=== PATIENT | male | born 2000 | race Caucasian/White ===

== ENCOUNTER 2023-06-17 18:54 | Emergency (ER) | payer SELFPAY ==
--- OUTSIDE RECORDS SUMMARY | 2023-06-17 18:57 | XMS REPORT | Continuity of Care Document ---
Author Name Unknown Address [address] [place] [address] [facility] thconnect Address [address] [place] [address] Care Team Providers Care Assistant District Attorney Name Role Phone PCP, PATIENT DOES NOT HAVE A Primary Care Physic cynthia Unavailable GODWIN SCHWARTZ Attending Clinician Unavail able Godwin Schwartz MD Attending Clinician [phone] Doctor Unassigned, [place] Attending Clinician U rafael Hugo RN, Tory Snyder Attending Clinician Unavailab Johnie Shaw Attending Clinician Unavailable Johnie Oviedo Attending Clinician [phone] GODWIN SCHWARTZ Admitting Clinician Unavail able Allergies, Adverse Reactions, Alerts Allergy Name Allergy Type Status Severity Reaction(s) Onset Date Inactive Date Treating Clinician Comments Source NO KNOWN ALLERGIE S Drug Class Active [facility] Social History Social Habit Start Date Stop Date Quantity Comments Source Exposure to SARS-CoV-2 (event) 2022-11-24 00:00:00 2022-12-04 07:59:00 Not sure [facility] Sex Assigned At 2000 00:00:00 2000 00:00:00 [facility] Smoking Status Start Date Stop Date Source Tobacco smoking consumption unknown [facility] Medications Ordered Medication Name Filled Medication Name Start Date Stop Date Current Medication? Ordering Clinician Indication Dosage Frequency Signature (SIG) Comments Components Source ondansetron (ZOFRAN-ODT ) disintegrat ing tablet 4 mg 12-04 14:15: 00 12-04 13:31 :00 No 4mg 4 mg, Oral, ONCE, 1 dose, On Alisha 12/04/22 at 0915, Routine [facility] acetaminoph en (TYLENOL EXTRA STRENGTH) 500 mg tablet 12-04 00:00: 00 Yes [id number] 500mg Take 1 tablet by mouth every 6 (six) hours as needed for Pain for up to 20 doses. [facility] ondansetron 4 mg disintegrat ing tablet 12-04 00:00: 00 Yes [id number] 4mg Take 1 tablet by mouth every 8 (eight) hours as needed for Nausea and Vomiting (N/V) for up to 10 doses. [facility] benzocaine- menthoL (CEPACOL INSTAMAX SORE THROAT) 15-20 mg Lozg 12-04 00:00: 00 Yes [id number] 1{lozen ge} Apply 1 Lozenge as directed every 8 (eight) hours as needed for Pain (scale 4-6) for up to 16 doses. [facility] famotidine (PEPCID) 20 mg tablet 12-04 00:00: 00 12-20 04:59 :00 No [id number] 20mg Take 1 tablet by mouth in the morning and 1 tablet in the evening. Do all this for 30 doses. [facility] benzonatate (TESSALON PERLES) capsule 100 mg 09-04 22:15: 00 09-04 21:18 :00 No 100mg 100 mg, Oral, ONCE, 1 dose, On Thu09/04/21 at 1615, KYLIE [facility] ibuprofen (IBU) tablet 600 mg 09-04 22:15: 00 09-04 21:17 :00 No 600mg 600 mg, Oral, ONCE, 1 dose, On Thu09/04/21 at 1615, KYLIE [facility] benzonatate 100 mg capsule 09-04 00:00: 00 Yes [id number] 100mg Take 1 capsule by mouth 3 (three) times daily as needed for Cough. [facility] mg tablet 2021-0 3-02 00:00: 00 Yes [id number] 600mg Take 1 tablet by mouth every 6 (six) hours as needed for Pain (scale 4-6). [facility] benzonatate 100 mg capsule 2-0 3-02 00:00: 00 Yes [id number] 100mg Take 1 capsule by mouth 3 (three) times daily as needed for Cough. [facility] ibuprofen 600 mg tablet 2-0 3-02 00:00: 00 Yes [id number] 600mg Take 1 tablet by mouth every 6 (six) hours as needed for Pain (scale 4-6). [facility] benzonatate 100 mg capsule 2021-0 -02 00:00: 00 Yes [id number] 100mg Take 1 capsule by mouth 3 (three) times daily as needed for Cough. [facility] ibuprofen 600 mg tablet 2-0 3-02 00:00: 00 Yes [id number] 600mg Take 1 tablet by mouth every 6 (six) hours as needed for Pain (scale 4-6). [facility] benzonatate 100 mg capsule 2021-0 3-02 00:00: 00 Yes [id number] 100mg Take 1 capsule by mouth 3 (three) times daily as needed for Cough. [facility] ibuprofen 600 mg tablet 2-0 3-02 00:00: 00 Yes [id number] 600mg Take 1 tablet by mouth every 6 (six) hours as needed for Pain (scale 4-6). [facility] Vital Signs Vital Name Observation Time Observation Value Comments Haydee lentz Systolic blood pressure 2022-12-04 14:52:43 120 mm[Hg] [facility] Diastolic blood pressure 2022-12-04 14:52:43 78 mm[Hg] [facility] Heart rate 2022-12-04 14:52:43 97 /min [facility] Body temperature 2022-12-04 14:52:43 36.67 Nereyda [facility] Respiratory rate 2022-12-04 14:52:43 16 /min [facility] Oxygen saturation in Arterial blood by Pulse oximetry 2022-12-04 14:50:00 98 /min [facility] Body height 2022-12-04 13:00:00 167.6 cm [facility] Body weight 2022-12-04 13:00:00 53.887 kg [facility] BMI 2022-12-04 13:00:00 19.17 kg/m2 [facility] Systolic blood pressure 2021-09-04 21:18:00 129 mm[Hg] [facility] Diastolic blood pressure 2021-09-04 21:18:00 56 mm[Hg] [facility] Heart rate 2021-09-04 21:18:00 95 /min [facility] Respiratory rate 2021-09-04 21:18:00 18 /min [facility] Oxygen saturation in Arterial blood by Pulse oximetry 2021-09-04 21:18:00 99 /min [facility] Body temperature 2021-09-04 19:46:00 37.89 Nereyda [facility] Body weight 2021-09-04 19:46:00 63.504 kg [facility] Procedures Procedure Date / Time Performed Performing Clinician Source ASSIGNMENT OF BENEFITS 2022-12-04 13:46:48 Docto r Unassigned, [place] [facility] RAPID STREP SCREEN FOR GROUP A 2022-12-04 13:33:00 Godwin Schwartz [facility] RAPID INFLUENZA A/B 2022-12-04 13:33:00 Godwin Schwartz [facility] COVID-19 (ID NOW RAPID TESTING) 2022-12-04 13:33:00 Godwin Schwartz [facility] NOTICE OF PRIVACY PRACTICES 2022-12-04 13:01:59 Doctor Unassigned, [place] [facility] CONSENT/REFUSAL FOR DIAGNOSIS AND TREATMENT 2022-12-04 13:01:39 Doctor Unassigned, [place] [facility] STERILIZATION CONSENT FORM 2022-03-31 05:01:00 Doctor Unassigned, [place] [facility] NOTICE OF PRIVACY PRACTICES 2021-09-04 19:35:20 Doctor Unassigned, [place] [facility] CONSENT/REFUSAL FOR DIAGNOSIS AND TREATMENT 2021-09-04 19:33:00 Doctor Unassigned, [place] [facility] Encounters Start Date/Time End Date/Time Encounter Type Admission Type Attending [facility] Care Facility Care Department Encounter ID Source 2022-12-04 08:01:00 2022-12-04 09:53:00 Emergency GODWIN STILES [facility] ERT [id number] [facility] 2022-12-04 08:01:00 2022-12-04 09:53:00 Emergency Godwin Schwartz [facility] [id number] [facility] 2022-03-31 00:00:00 2022-03-31 00:00:00 Orders Only Doctor Unassigned, [place] [facility] [id number] [facility] 2021-09-05 00:00:00 2021-09-05 00:00:00 Letter (Out) Tory Hugo [facility] [id number] [facility] 2021-09-04 13:47:00 2021-09-04 15:40:00 Emergency X Johnie BOWMAN [facility] ERT [id number] [facility] 2021-09-04 13:47:00 2021-09-04 15:40:00 Emergency Johnie Bowman [facility] [id number] [facility]
--- NOTE | 2023-06-17 19:12 | EDPHYS ---
Physician Documentation [facility] Name: Aki Dewey Age: 23 yrs Sex: Male : 2000 Arrival Date: 06/17/2023 Time: 18:54 Bed Waiting Private MD: STEWART Physician Mat Ding HPI: 06/17 19:11 This 23 yrs old Male presents to ER via Ambulatory with complaints of Vomiting. kb 19:11 Patient is a 23-year-old male with no medical history who presents for a work note. kb States he had vomiting and diarrhea for the last 2 days so he missed work and was told he needed a doctor's note to return. States he has had no symptoms today. Has been tolerating p.o. intake.. Historical: - Allergies: 19:11 No Known Allergies; cm10 - Home Meds: 19:11 None [Active]; cm10 - PMHx: 19:11 None; cm10 - PSHx: 19:11 None; cm10 - Immunization history:: Adult Immunizations unknown. - Social history:: Smoking status: Reported history of juuling and/or vaping. ROS: 19:12 Constitutional: Negative for fever, chills, and weight loss, kb 19:12 All other systems are negative, Exam: 19:12 Constitutional: This is a well developed, well nourished patient who is awake, alert, kb and in no acute distress. Head/Face: Normocephalic, atraumatic. ENT: Moist Mucous membranes Respiratory: Respirations even and unlabored. No increased work of breathing. Talking in full sentences Abdomen/GI: Soft, non-tender. No distention Skin: Warm, dry with normal turgor. Normal color. MS/ Extremity: Pulses equal, no cyanosis. Neurovascular intact. Full, normal range of motion. Neuro: Awake and alert, GCS 15, oriented to person, place, time, and situation. Moves all extremities. Normal gait. Vital Signs: 19:10 BP 127 / 69; Pulse 89; Resp 18; Temp 97; Pulse Ox 98% ; cm10 MDM: 19:08 Patient medically screened. kb 19:12 Differential diagnosis: viral gastroenteritis, Electrolyte abnormality, dehydration. kb Data reviewed: vital signs, nurses notes. Test considered but Not performed: Labs: CBC CMP considered but symptoms have resolved, patient is tolerating p.o. intake, nontoxic in appearance, afebrile and vital signs stable.. Counseling: I had a detailed discussion with the patient and/or guardian regarding the historical points, exam findings, and any diagnostic results supporting the discharge/admit diagnosis, the need for outpatient follow up, a family practitioner, to return to the emergency department if symptoms worsen or persist or if there are any questions or concerns that arise at home. Administered Medications: No medications were administered Disposition Summary: 06/17/23 19:11 Discharge Ordered Notes: Location: Home kb Condition: Stable kb Diagnosis - Encounter for issue of other medical certificate kb Followup: kb - With: Emergency Department - When: As needed - Reason: Worsening of condition Followup: kb - With: Private Physician - When: 2 - 3 days - Reason: Recheck today's complaints, Continuance of care, Re-evaluation by your physician Discharge Instructions: - Discharge Summary Sheet kb Forms: - Work release form kb - Medication Reconciliation Form kb - Thank You Letter kb - Antibiotic Education kb - Prescription Opioid Use kb - Patient Portal Instructions kb - Leadership Thank You Letter kb Signatures: Mecca Bernal, ANTON-C ANTON-Taina Busch, RN RN cm10
--- NOTE | 2023-06-17 19:12 | ER ---
Nurse's Notes [facility] Name: Aki Dewey Age: 23 yrs Sex: Male : 2000 Arrival Date: 06/17/2023 Time: 18:54 Bed Waiting Private MD: Diagnosis: Encounter for issue of other medical certificate Presentation: 06/17 19:10 Chief complaint: Patient states: Here for a work note due to being ill Thursday and cm10 Thursday. No complaints at this time. Coronavirus screen: Vaccine status: Patient reports being unvaccinated. Client denies travel out of the [place] in the last 14 days. Ebola Screen: Patient denies travel to an Ebola-affected area in the 21 days before illness onset. No symptoms or risks identified at this time. Initial Sepsis Screen: Does the patient meet any 2 criteria? No. Patient's initial sepsis screen is negative. Does the patient have a suspected source of infection? No. Patient's initial sepsis screen is negative. Risk Assessment: Do you want to hurt yourself or someone else? Patient reports no desire to harm self or others. Onset of symptoms was June 17, 2023. 19:10 Method Of Arrival: Ambulatory cm10 19:10 Acuity: CESAR 5 cm10 Triage Assessment: 19:11 General: Appears in no apparent distress. comfortable, Behavior is calm, cooperative. cm10 Pain: Denies pain. Neuro: No deficits noted. Level of Consciousness is awake, alert, obeys commands, Oriented to person, place, time, situation. Respiratory: No deficits noted. Airway is patent Respiratory effort is even, unlabored, Respiratory pattern is regular, symmetrical. GI: Reports nausea. Derm: No deficits noted. Skin is intact, Skin is pink, warm \T\ dry. Musculoskeletal: Range of motion: intact in all extremities. Historical: - Allergies: 19:11 No Known Allergies; cm10 - Home Meds: 19:11 None [Active]; cm10 - PMHx: 19:11 None; cm10 - PSHx: 19:11 None; cm10 - Immunization history:: Adult Immunizations unknown. - Social history:: Smoking status: Reported history of juuling and/or vaping. Screenin:12 [facility] ED Fall Risk Assessment (Adult) History of falling in the last 3 months, cm10 including since admission No falls in past 3 months (0 pts) Confusion or Disorientation No (0 pts). Abuse screen: Denies threats or abuse. Denies injuries from another. Nutritional screening: No deficits noted. Tuberculosis screening: No symptoms or risk factors identified. Vital Signs: 19:10 BP 127 / 69; Pulse 89; Resp 18; Temp 97; Pulse Ox 98% ; cm10 ED Course: 18:56 Patient arrived in ED. mg5 18:59 Mecca Bernal FNP-C is [facility]. kb 18:59 Mat Ding MD is Attending Physician. kb 19:11 Triage completed. cm10 19:12 Arm band placed on Patient placed in waiting room. cm10 19:12 Patient has correct armband on for positive identification. Provided Education on: ER cm10 process and procedures. . 19:12 No provider procedures requiring assistance completed. Patient did not have IV access cm10 during this emergency room visit. Administered Medications: No medications were administered Medication: 19:12 VIS not applicable for this client. cm10 Outcome: 19:11 Discharge ordered by . kb 19:12 Discharged to home ambulatory, cm10 19:12 Condition: good 19:12 Discharge instructions given to patient, Instructed on discharge instructions, follow up and referral plans. Demonstrated understanding of instructions, follow-up care, 19:12 Patient left the ED. cm10 Signatures: Mecca Bernal FNP-C FNP-Ckb Martinez, Clarissa, RN RN cm10 Abigail Gonzales mg5
== END 2023-06-17 19:12 | disposition home or self-care (01) ==
LOC: ER 18:54
DX: Z02.79 Encounter for issue of other medical certificate (principal)